=== PATIENT | female | born 1980 | race Caucasian/White ===

== ENCOUNTER → 2021-10-18 | Outpatient (CLI) | payer OTHER ==
[~2021-10-18] MED LIST: ACETAMINOPHEN-1 EAC1 PO; AMOXICILLIN500 M1 PO; LEVOTHYROXINE0.05 MG PO
== END ==
LOC: M.CT 13:21
PROVIDERS: ATTEND Nurse Practitioner Family
DX: K57.30 Diverticulosis of large intestine without perforation or abscess without bleeding (principal); R19.03 Right lower quadrant abdominal swelling, mass and lump; Z90.722 Acquired absence of ovaries, bilateral; Z90.49 Acquired absence of other specified parts of digestive tract